=== PATIENT | male | born 1985 | race Caucasian/White ===

== ENCOUNTER 2018-09-18 14:13 | Outpatient (CLI) | payer OTHER ==
--- NOTE | 2018-09-18 15:11 | ULT ---
SONOGRAM SOFT TISSUE RIGHT AXILLA: History: Previous right axillary fluid collection with drainage. Possible mass. FINDINGS: Sonographic survey of the right axilla in the region of palpable concern shows the axillary vessels t o have a normal appearance. No solid or cystic masses. IMPRESSION: No significant abnormalities are demonstrated. POS: [facility]
--- NOTE | 2018-09-18 16:10 | ULT ---
ULTRASOUND TESTICULAR WITH DOPPLER: 09/18/18 HISTORY: Left sided testicular swelling and warmth. COMPARISON: None. FINDINGS: Real time frankel scale, color doppler and spectral analysis of the testicles was performed. Right testi lois measures 3.6 x 2.5 x 1.7 cm and left testicle measures 3.7 x 2.8 x 1.8 cm. Adequate vascular flow to both testicles. Normal echotexture. No mass. There is a small left sided varicocele which increased with Valsalva. IMPRESSION: 1. Small left sided varicocele. 2. Incidental note of right testicular calcifications. 3. Adequate vascular flow to the testicles. POS: [facility]
== END 2018-09-18 14:14 | disposition home or self-care (01) ==
LOC: BICULT 14:13
PROVIDERS: ATTEND Family Medicine
DX: N50.819 Testicular pain, unspecified (principal); R22.31 Localized swelling, mass and lump, right upper limb; I86.1 Scrotal varices
CPT/HCPCS: 76870; 76999; 93976

== ENCOUNTER 2021-09-10 12:14 | Emergency (ER) | payer SELFPAY ==
[2021-09-10] MEDS ORDERED: Lidocaine 1% (PF) 30 ML VIAL ONE (12:40)
[2021-09-10] MEDS ORDERED: cefTRIAXone\\ROCEPHIN 500 MG VIAL ONE (12:40)
[2021-09-10] MEDS ORDERED: Azithromycin 250 MG TAB ONE (12:40)
[2021-09-10] MEDS ORDERED: Bicillin LA 2.4 MILL.UNITS/4 ML SYRINGE ONE (12:40)
[2021-09-11 15:32] LABS: Syphilis Antibody Nonreactive (Nonreactive); Syphilis Antibody Index 0.07 S/CO (<1.00 Non-Reactive)
[2021-09-12 09:25] LABS: Chlam.trachomatis by PCR,Urine Not Detected (NotDetected)
== END 2021-09-10 14:35 | disposition home or self-care (01) ==
LOC: ERS 12:14
DX: A51.0 Primary genital syphilis (principal); N50.812 Left testicular pain
CPT/HCPCS: 36415; 76870; 86780; 87491; 87591; 93976; 96372; J0561; J0696; J2001